=== PATIENT | male | born 1955 | race African-American/Black ===

== ENCOUNTER 2017-04-28 06:10 | Emergency (ER) | payer OTHER, SELFPAY ==
[2017-04-28 06:39] LABS: Hemoglobin 14.1 g/dL (14.0-18.0); Mean Corpuscular HGB CONC 32.5 g/dL (32.0-36.0); Mean Corpuscular Hemoglobin 31.9 pg (27.0-31.0); Mean Corpuscular Volume 98.1 fl (80.0-94.0); Platelet Count 248 thou/uL (130-400); RBC Distribution Width 11.4 % (11.5-14.5); Red Blood Cell (RBC) Count 4.42 mill/uL (4.70-6.10); White Blood Cell (WBC) Count 6.1 thou/uL (4.8-10.8)
[2017-04-28 06:41] LABS: Bilirubin Negative (Negative); Blood, Urine Negative (Negative); Clarity CLEAR (Clear); Glucose, Urine (Dipstick) Negative (Negative); Leukocyte Negative (Negative); Nitrite Negative (Negative); Protein, Urine (Dipstick) Negative (Neg-Trace); Specific Gravity, Urine 1.023 (1.002-1.036)
[2017-04-28 06:59] LABS: Eosinophils 8 % (0-10); Lymphocytes 60 % (21-51); MDiff Complete? YES; Monocytes 12 % (0-10); Neutrophil 18 % (42-75); RBC Morphology Normal; Reactive Lymphocytes 2 % (0-10)
[2017-04-28 07:10] LABS: ALT (SGPT) 21 U/L (8-55); AST (SGOT) 18 U/L (5-34); Albumin 4.1 g/dL (3.4-4.8); Alkaline Phosphatase 59 U/L (40-150); Anion Gap 12 mmol/L (10-20); BUN (Urea Nitrogen) 12 mg/dL (8.4-25.7); Bilirubin, Total 0.5 mg/dL (0.2-1.2); Calc. Creatinine Clearance 0 mL/min (70-130); Calcium 9.6 mg/dL (7.8-10.44); Carbon Dioxide 23 mmol/L (23-31); Chloride 103 mmol/L (98-107); Estimated GFR-MDRD 68; Globulin 3.7 g/dL (2.4-3.5); Glucose 152 mg/dL (80-115); Potassium 3.9 mmol/L (3.5-5.1); Protein, Total 7.8 g/dL (5.8-8.1); Sodium 134 mmol/L (136-145)
== END 2017-04-28 08:08 | disposition home or self-care (01) ==
LOC: ERS 06:10
DX: S39.012A Strain of muscle, fascia and tendon of lower back, initial encounter (principal); E11.9 Type 2 diabetes mellitus without complications; I10 Essential (primary) hypertension; Z87.891 Personal history of nicotine dependence; X58.XXXA Exposure to other specified factors, initial encounter
CPT/HCPCS: 36415; 80053; 81003; 85025; 99284

== ENCOUNTER 2018-12-25 09:19 | Observation (INO) | payer MEDICARE, SELFPAY ==
[2018-12-25 10:29] LABS: #Basophils 0.1 thou/uL (0.0-0.2); #Eosinphils 0.3 thou/uL (0.0-0.7); #Lymphocytes 2.6 thou/uL (1.20-3.40); #Monocytes 0.4 thou/uL (0.11-0.59); #Neutrophils 2.4 thou/uL (1.40-6.50); %Basophils 1.3 % (0.0-1.0); %Eosinophils 5.7 % (0.0-10.0); %Monocytes 6.6 % (0.0-10.0); %Neutrophils 41.4 % (42.0-75.0); Hemoglobin 13.6 g/dL (14.0-18.0); Mean Corpuscular HGB CONC 34.3 g/dL (32.0-36.0); Mean Corpuscular Hemoglobin 32.9 pg (27.0-31.0); Mean Platelet Volume 8.4 fL (7.4-10.4); Platelet Count 215 thou/uL (130-400); RBC Distribution Width 11.2 % (11.5-14.5); Red Blood Cell (RBC) Count 4.13 mill/uL (4.70-6.10); White Blood Cell (WBC) Count 5.8 thou/uL (4.8-10.8)
[2018-12-25] MEDS ORDERED: Aspirin Chewable 81 MG TAB ONE (10:33)
[2018-12-25] MEDS ORDERED: Nitroglycerin 0.4 MG TAB 1 EACH ONE (10:33)
--- NOTE | 2018-12-25 10:35 | RAD ---
EXAM: Portable chest PROVIDED CLINICAL HISTORY: Chest pain COMPARISON: None FINDINGS: Cardiac and mediastinal silhouette is within normal limits. No focal consolidation, pleural fluid or pneumothorax evident. IMPRESSION: No evidence for an acute cardiopulmonary process.
[2018-12-25] MEDS ORDERED: Nitroglycerin 2% Ointment 1 INCH/1 GM Packet ONE (11:44)
[2018-12-25 12:29] LABS: ALT (SGPT) 28 U/L (8-55); AST (SGOT) 17 U/L (5-34); Albumin 4.1 g/dL (3.4-4.8); Alkaline Phosphatase 74 U/L (40-150); Anion Gap 14 mmol/L (10-20); BUN (Urea Nitrogen) 11 mg/dL (8.4-25.7); Bilirubin, Total 0.4 mg/dL (0.2-1.2); CK (CPK) 226 U/L (30-200); Calc. Creatinine Clearance 0 mL/min (70-130); Calcium 9.7 mg/dL (7.8-10.44); Carbon Dioxide 20 mmol/L (23-31); Chloride 103 mmol/L (98-107); Estimated GFR-MDRD 70; Globulin 3.2 g/dL (2.4-3.5); Glucose 316 mg/dL (80-115); Lipase 10 U/L (8-78); Potassium 4.1 mmol/L (3.5-5.1); Protein, Total 7.3 g/dL (5.8-8.1); Sodium 133 mmol/L (136-145)
[2018-12-25] MEDS ORDERED: Ondansetron ODT 4 MG TAB PO PRN (12:52)
[2018-12-25] MEDS ORDERED: Ondansetron PF 4 MG/2 ML Vial IVP PRN (12:52)
[2018-12-25] MEDS ORDERED: Acetaminophen 325 MG TAB PO PRN (12:52)
[2018-12-25 12:59] VITALS: BMI 30.2
[2018-12-25] MEDS: Nitroglycerin 2% Ointment 1 INCH/1 GM Packet TOP SCH ×2 (13:33→22:10)
[2018-12-25 14:09] LABS: Troponin I Less than 0.010 ng/mL (< 0.028)
[2018-12-25] MEDS ORDERED: Nitroglycerin 0.4 MG TAB (25 Tab Bottle) PO PRN (15:54)
[2018-12-25] MEDS ORDERED: Dextrose 5% in Water 1,000 ML IV PRN (15:57)
[2018-12-25] MEDS ORDERED: Dextrose 50% Abboject 50 ML SYRINGE SLOW IVP PRN (15:57)
[2018-12-25] MEDS: Sodium Chloride 0.9% 1,000 ML IV SCH (16:31)
[2018-12-25] MEDS: HumaLOG 300 UNITS/3 ML VIAL SC PRN (16:48)
[2018-12-25 16:50] LABS: Troponin I Less than 0.010 ng/mL (< 0.028)
--- NOTE | 2018-12-25 16:57 | HP ---
PRIMARY CARE PROVIDER: Katerine Doherty MD CHIEF COMPLAINT: Bilateral upper extremity pain. HISTORY OF PRESENT ILLNESS: Mr. Kennedy is a pleasant 63-year-old gentleman, who was seen at [facility] on December 25, 2018. He reports that earlier today, he developed bilateral upper extremity pain, starting from the shoulders to his fingers. He describes it as dull ache, 7/10 at its worst, no known aggravating or relieving factors, nonradiating. He reports that the pain has resolved. He denies any chest pain or shortness of breath. He denies any nausea or vomiting. REVIEW OF SYSTEMS: All systems were reviewed and found to be negative except for the pertinent positives mentioned above. PAST MEDICAL HISTORY: Diabetes mellitus type 2 and hypertension. SURGICAL HISTORY: Testicular surgery. SOCIAL HISTORY: The patient reports occasional marijuana use, occasional alcohol use. He denies any current tobacco use, although he has a history of tobacco use. FAMILY HISTORY: The patient denies any family history of premature coronary artery disease. ALLERGIES: NO KNOWN DRUG ALLERGIES. CURRENT MEDICATIONS: 1. Atorvastatin 40 mg at bedtime. 2. Enalapril 20 mg daily. 3. Hydrochlorothiazide 25 mg daily. 4. Lantus insulin 35 units in the morning and 30 units in the evening. 5. Lopressor 25 mg 2 times a day. 6. Ranitidine 150 mg 2 times a day. CODE STATUS: I discussed his code status. He is full code. PHYSICAL EXAMINATION: GENERAL: On examination, Mr. Kennedy is awake and alert, not in acute distress. VITAL SIGNS: Blood pressure is 164/89, pulse 68, respiratory rate 18, and oxygen saturation 99% on room air. He is afebrile. EYES: No scleral icterus, no conjunctival pallor. ENT: Moist mucosal membranes. No oropharyngeal erythema or exudates. NECK: Supple, nontender. Trachea is midline. RESPIRATORY: Accessory muscles of breathing are not active. Chest wall movements are symmetric bilaterally. LUNGS: Clear to auscultation, without wheeze, rhonchi, or crepitations. CARDIOVASCULAR: S1 and S2 are heard, regular. Peripheral pulses palpable. No carotid bruit. No pericardial rub. ABDOMEN: Soft, nontender. Bowel sounds are heard. NEUROLOGIC: Cranial nerves 2 through 12 are intact. Deep tendon reflexes 2+. No motor or sensory deficits in the upper extremities or lower extremities. MUSCULOSKELETAL: Power is 5/5 in all 4 extremities. SKIN: No rashes or subcutaneous nodules. LYMPHATIC: No cervical lymphadenopathy. PSYCHIATRIC: Normal mood, normal affect. The patient is oriented to person, place, and time. LABORATORY DATA: Mr. Kennedy's labs and investigations were reviewed. I reviewed his electrocardiogram, which shows normal sinus rhythm, T-wave inversions in the inferior and lateral leads. I also reviewed his chest x-ray, which does not show any pulmonary infiltrates. He has normal white count, normocytic anemia with hemoglobin 13.6, normal platelet count, mildly decreased sodium of 133, normal potassium, normal creatinine, unremarkable LFTs, elevated CK of 226, normal lipase, and troponin I negative x2. ASSESSMENT AND PLAN: Mr. Kennedy is a pleasant 63-year-old gentleman, who was seen at [facility] on December 25, 2018. His problem list includes: 1. Upper extremity pain: Mr. Kennedy is presenting with upper extremity pain, most likely of musculoskeletal etiology. However, given his significant risk factors and the abnormal electrocardiogram, atypical presentation of acute coronary syndrome cannot be ruled out at this time. His pain has resolved. He will be admitted to the hospital for telemetry monitoring. I will also order a nuclear stress test. 2. Diabetes mellitus type 2: Continue Lantus insulin, start Accu-Cheks and insulin sliding scale. 3. Hyponatremia: Mild, likely asymptomatic. 4. Rhabdomyolysis: Mild, recheck CK level after providing intravenous hydration. 5. Dyslipidemia: Continue statin. 6. Hypertension: Resume home medications, monitor vital signs and titrate antihypertensives as needed. Many thanks for allowing me to participate in your patient's care. Please feel free to contact me with any questions or concerns. LEVEL OF RISK: High. LEVEL OF COMPLEXITY: High. Job ID: [id number]
[2018-12-25] MEDS ORDERED: Insulin Glargine 30 UNITS in Pre-Filled Syringe 1 EACH SC SCH (21:00)
[2018-12-25] MEDS ORDERED: Atorvastatin Calcium 40 MG TAB PO SCH (21:00)
[2018-12-25] MEDS: Metoprolol Tartrate 25 MG TAB PO SCH (21:16)
[2018-12-25] MEDS: Famotidine 20 MG TAB PO SCH (21:16)
[2018-12-26] MEDS: Sodium Chloride 0.9% 1,000 ML IV SCH (04:25)
[2018-12-26 05:03] LABS: Anion Gap 12 mmol/L (10-20); BUN (Urea Nitrogen) 13 mg/dL (8.4-25.7); CK (CPK) 181 U/L (30-200); Calc. Creatinine Clearance 86 mL/min (70-130); Calcium 9.3 mg/dL (7.8-10.44); Carbon Dioxide 24 mmol/L (23-31); Chloride 104 mmol/L (98-107); Estimated GFR-MDRD 72; Glucose 231 mg/dL (80-115); Potassium 3.8 mmol/L (3.5-5.1); Sodium 136 mmol/L (136-145)
[2018-12-26 05:05] LABS: #Basophils 0.1 thou/uL (0.0-0.2); #Eosinphils 0.4 thou/uL (0.0-0.7); #Lymphocytes 3.3 thou/uL (1.20-3.40); #Monocytes 0.6 thou/uL (0.11-0.59); #Neutrophils 2.6 thou/uL (1.40-6.50); %Basophils 1.3 % (0.0-1.0); %Eosinophils 5.4 % (0.0-10.0); %Lymphocytes 47.8 % (21.0-51.0); %Monocytes 8.1 % (0.0-10.0); %Neutrophils 37.4 % (42.0-75.0); Hemoglobin 12.4 g/dL (14.0-18.0); Mean Corpuscular HGB CONC 35.1 g/dL (32.0-36.0); Mean Corpuscular Hemoglobin 33.5 pg (27.0-31.0); Mean Corpuscular Volume 95.5 fL (78.0-98.0); Mean Platelet Volume 8.8 fL (7.4-10.4); Platelet Count 198 thou/uL (130-400); RBC Distribution Width 11.2 % (11.5-14.5); White Blood Cell (WBC) Count 6.9 thou/uL (4.8-10.8)
[2018-12-26] MEDS ORDERED: Hydrochlorothiazide 25 MG TAB PO SCH (09:00)
[2018-12-26] MEDS ORDERED: Insulin Glargine 35 UNITS in Pre-Filled Syringe 1 EACH SC SCH (09:00)
[2018-12-26] MEDS ORDERED: Aspirin 325 mg Enteric Coated Tablet PO SCH (09:00)
[2018-12-26] MEDS ORDERED: Enoxaparin Sodium 40 MG/0.4 ML SYRINGE SC SCH (09:00)
[2018-12-26] MEDS ORDERED: Lisinopril 20 MG TAB PO SCH (09:00)
[2018-12-26] MEDS ORDERED: ADENOSINE 60 MG/20 ML VIAL ONE (10:01)
--- NOTE | 2018-12-26 11:21 | NM ---
EXAM: Nuclear medicine cardiac perfusion examination with ejection fraction HISTORY: Abnormal EKG and chest pain TECHNIQUE: Rest images: 10.4 mCi technetium 99m sestamibi Stress images: 31.8 mCi of technetium 9M sestamibi; Adenosine COMPARISON: None FINDINGS: Tomographic images: No fixed or reversible perfusion defects. Gated images: Normal wall motion and ejection fraction of 59%. EDV: 125 mL LHR: 0.3 TID: 1.0 IMPRESSION: No evidence of ischemia
[2018-12-26] MEDS: Famotidine 20 MG TAB PO SCH (11:38)
[2018-12-26] MEDS: Metoprolol Tartrate 25 MG TAB PO SCH (11:39)
[2018-12-26] MEDS: HumaLOG 300 UNITS/3 ML VIAL SC PRN (11:40)
[2018-12-26 11:48] VITALS: BP 142/88; TEMP 97.5
--- NOTE | 2018-12-27 03:51 | DIS ---
DATE OF ADMISSION: 12/25/2018 DATE OF DISCHARGE: 12/26/2018 PRIMARY CARE PROVIDER: Katerine Doherty MD DISCHARGE DIAGNOSES: 1. Bilateral upper extremity pain. 2. Abnormal electrocardiogram. CONDITION OF PATIENT ON THE DAY OF DISCHARGE: Stable. I assessed Mr. Kennedy on the day of discharge. He denies any chest pain or shortness of breath. Vital signs are stable. S1 and S2 are heard, regular. Lungs are clear to auscultation bilaterally. DISCHARGE MEDICATIONS: 1. Atorvastatin 40 mg at bedtime. 2. Enalapril 20 mg daily. 3. Hydrochlorothiazide 25 mg daily. 4. Lantus insulin 35 units in the morning and 30 units in the evening. 5. Lopressor 25 mg 2 times a day. 6. Ranitidine 150 mg 2 times a day. FOLLOWUP APPOINTMENTS: The patient is advised to follow up with primary care provider in 3 to 5 days. HOSPITAL COURSE: Mr. Kennedy is a pleasant 63-year-old gentleman, who was admitted to [facility] for bilateral upper extremity pain and abnormal EKG. His pain resolved following admission. He underwent nuclear stress test, which did not show any evidence of ischemia. Left ventricular ejection fraction was 59%. He also had a normal D-dimer, ruling out pulmonary embolism as a cause of his symptoms. He is being discharged to home in a stable condition. Many thanks for allowing me to participate in your patient's care. Please feel free to contact me with any questions or concerns. DISCHARGE DESTINATION: Home. Job ID: [id number]
--- NOTE | 2018-12-27 13:07 | STRESS ---
Acquisition Time: 2018-12-26 09:45:58 Total Exercise Time: 00:04:00 Test Indications: CHEST PAIN Medications: Protocol: ADENOSINE Max HR: 107 BPM 69% of Pred: 155 BPM Max BP: 144/088 mmHG Max Work Load: 1.0 METS RESTING ECG: NORMAL SINUS RHYTHM AT 65 BPM WITH NON-SPECIFIC T-WAVE CHANGES AND POOR R-WAVE PROGRESSION SYMPTOMS: DYSPNEA NORMAL BP RESPONSE ECTOPY: WENCKEBACH AND OCCASIONAL PVC'S ECG STRESS: NO SIGNIFICANT CHANGES INTERPRETATION: AWAIT NUCLEAR IMAGES FOR DEFINITIVE DIAGNOSIS Confirmed by STEPHANIE GALEANA ([id number]), offline editor SHIRLENE VARGAS ([id number]) on 12/27/2018 1:06:26 PM Referred By: MD Gina ROBERSON Confirmed By:STEPHANIE GALEANA
--- NOTE | 2018-12-31 15:18 | EKG ---
Test Reason : Blood Pressure : / mmHG Vent. Rate : 065 BPM Atrial Rate : 065 BPM P-R Int : 178 ms QRS Dur : 104 ms QT Int : 410 ms P-R-T Axes : 027 -03 -81 degrees QTc Int : 426 ms Normal sinus rhythm Abnormal ECG No prior ekg for comparison Confirmed by ALEKS SWIFT, ERI ([id number]), material expeditor IRIS RENEE ([id number]) on 12/31/2018 3:18:13 PM Referred By: Confirmed By:ERI FINK MD
== END 2018-12-26 16:29 | disposition home or self-care (01) ==
LOC: ERS 09:19 → 2SW 11:40
PROVIDERS: ADMIT Internal Medicine; ATTEND Internal Medicine
DX: M79.622 Pain in left upper arm (principal); M79.621 Pain in right upper arm; I10 Essential (primary) hypertension; E11.9 Type 2 diabetes mellitus without complications; E78.5 Hyperlipidemia, unspecified; E87.1 Hypo-osmolality and hyponatremia; M62.82 Rhabdomyolysis; Z79.4 Long term (current) use of insulin; Z79.899 Other long term (current) drug therapy; Z87.891 Personal history of nicotine dependence
CPT/HCPCS: 71045; 78452; 80048; 80053; 82550 ×2; 82962 ×2; 83690; 84484 ×2; 85025 ×2; 85379; 93005; 93017; 96360; 96361 ×2; 99284; A9500; G0378 ×3; 36415; 36416; J0153; J1815